=== PATIENT | male | born 1980 | race African-American/Black ===

== ENCOUNTER 2018-11-13 12:27 | Emergency (ER) | payer OTHER ==
[2018-11-13] MEDS ORDERED: LISINOPRIL 5 MG TABLET PO ONE ×3 (13:01→14:00)
--- NOTE | 2018-11-13 13:23 | ED Physician Documentation ---
General Adult - HPI Stated Complaint: high BP Chief Complaint: General Adult Additional Information: Patient presents to ED with high blood pressure associated with visual changes. Patient states this morning he went to work and had some blurred vision and did not feel like himself. He went home and his mother took his blood pressure, it was 178/108. He went to the urgent care and it was 170/118 there. Urgent care referred him to ER. Upon presentation he states his visual changes have resolved and he is feeling better. BP 171/95 here. Patient admits to a family history of hypertension. He also reports a long standing history of snoring, waking up choking/coughing and restless nights. - ROS CONST: denies: fever EYES/ENT: denies: nasal drainage CVS/RESP: denies: chest pain, shortness of breath, cough GI/: denies: vomiting, nausea MS/SKIN/LYMPH: denies: leg swelling NEURO/PSYCH: denies: headache - PAST HX Past History: hypertension Other History: none Surgeries/Procedures: none Allergies/Adverse Reactions: Allergies Allergy/AdvReac Type Severity Reaction Status Date / Time No Known Allergies Allergy Verified 11/13/18 12:51 Home Medications: Ambulatory Orders Medication Instructions Recorded Lisinopril [Prinivil] 10 mg PO DAILY #30 tablet 11/13/18 - SOCIAL HX Smoking History: cigarettes, greater than 1 pack/day Alcohol Use: none Drug Use: none - FAMILY HX Family History: Yes - VITAL SIGNS Vital Signs: Vital Signs Temp Pulse Resp BP Pulse Ox 62 16 171/95 99 11/13/18 12:30 11/13/18 12:30 11/13/18 12:30 11/13/18 12:30 - REVIEWED ASSESSMENTS Nursing Assessment Reviewed: Yes Vitals Reviewed: Yes Progress - Progress Progress: 1349 Blood pressure 158/86 ED Results Lab/Radiology - Orders Orders: ED Orders Category Date Time Status Lisinopril [Prinivil] Med 11/13/18 13:01 Discontinued 10 mg PO NOW ONE General Adult Physical Exam - PHYSICAL EXAM GENERAL APPEARANCE: no distress EENT: JAYA NECK: supple RESPIRATORY: no resp distress, chest non-tender, breath sounds normal CVS: reg rate & rhythm, heart sounds normal ABDOMEN: soft, normal bowel sounds BACK: normal inspection, no CVA tenderness SKIN: warm/dry, normal color EXTREMITIES: non-tender NEURO: oriented X3, sensation nml Discharge Clincal Impression: Accelerated essential hypertension Sleep apnea Qualifiers: Sleep apnea type: obstructive Qualified Code(s): G47.33 - Obstructive sleep apnea (adult) (pediatric) Prescriptions: Lisinopril [Prinivil] 10 mg PO DAILY #30 tablet Referrals: Lobo Vernon MD [Primary Care Provider] - 2 Days Additional Instructions: 1. Take lisinopril daily 2. Follow up with PCP within 1 week 3. You would benefit from a sleep study to determine severity of sleep apnea 4. Long-term affects of untreated sleep apnea include uncontrolled hypertension, heart failure and decreased quality of life 5. Smoking cessation is recommended 6. Return to ED for new or worsening symptoms. Condition: Stable Decision to Admit: NO Date of Decison to Admit: 11/13/18 Decision Time: 13:29
[2018-11-13 13:58] VITALS: BP 156/86
== END 2018-11-13 13:56 | disposition home or self-care (01) ==
LOC: ED 12:27
DX: I10 Essential (primary) hypertension (principal); G47.33 Obstructive sleep apnea (adult) (pediatric); Z72.0 Tobacco use
CPT/HCPCS: 99282; 99283